=== PATIENT | female | born 1970 | race Caucasian/White ===

== ENCOUNTER 2017-02-03 18:51 | Emergency (ER) | payer OTHER ==
[~2017-02-03] VITALS: Ht 175.3 cm; Wt 98.0 kg
[~2017-02-03 18:51] MED LIST: ASPI81TA82 PO; LISI-363 PO; VENL75 PO
[2017-02-03 19:06] VITALS: BP 154/101; PULSE 82; RESP 16; TEMP 98.7; O2SAT 98
[2017-02-03] MEDS ORDERED: VENL75TA PO (19:23)
[2017-02-03] MEDS ORDERED: LISI-515 PO (19:23)
[2017-02-03] MEDS ORDERED: ASPI1TAB69 PO (19:23)
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
[2017-02-03] MEDS ORDERED: HYDR-3533 PO (20:12)
[2017-02-03] MEDS ORDERED: DICL75TA PO (20:12)
== END 2017-02-03 20:33 | disposition home or self-care (01) ==
LOC: PHEFT 18:51
DX: S13.4XXA Sprain of ligaments of cervical spine, initial encounter (principal); S62.613A Displaced fracture of proximal phalanx of left middle finger, initial encounter for closed fracture; I10 Essential (primary) hypertension; M47.9 Spondylosis, unspecified; Z79.82 Long term (current) use of aspirin; V43.52XA Car driver injured in collision with other type car in traffic accident, initial encounter; Y93.9 Activity, unspecified; Y92.9 Unspecified place or not applicable; Y99.9 Unspecified external cause status
CPT/HCPCS: 29130; 72125; 73140